=== PATIENT | female | born 1990 | race Caucasian/White ===

== ENCOUNTER 2022-04-15 10:44 | Outpatient (REF) | payer MEDICARE, MEDICAID, SELFPAY ==
[2022-04-15 13:15] LABS: MANUAL DIFF FLAG NO
[2022-04-15 13:21] LABS: Basophils Absolute Auto 0.1 X10*3/uL (0.0-0.2); Basophils Percent Auto 0.6 % (0-2); Eosinophils Percent Auto 0.2 % (0-4); Hematocrit 47.9 % (37.0-47.0); Hemoglobin 15.5 g/dl (12.0-16.0); Imm Gran Abs Auto 0.03 X10*3/uL (0.00-0.03); Imm Gran Pct Auto 0.2 % (0.0-0.4); Lymphocytes Absolute Auto 2.1 X10*3/uL (1.2-4.9); Lymphocytes Percent Auto 17.2 % (20-40); Mean Corpuscular HGB Conc 32.4 g/dl (31.0-35.0); Mean Corpuscular Hemoglobin 29.6 pg (27.0-33.0); Mean Corpuscular Volume 91.4 fL (80.0-98.0); Mean Platelet Volume 12.8 fL (9.4-12.3); Monocytes Absolute Auto 0.3 X10*3/uL (0.1-1.2); Monocytes Percent Auto 2.8 % (2-11); Neutrophils Absolute Auto 9.6 x10*3/uL (2.0-8.3); Platelet Count 318 X10*3/uL (160-400); Red Blood Count 5.24 X10*6/uL (4.20-5.50); Red Cell Distribution Width 14.9 % (11.0-16.0); White Blood Count 12.2 X10*3/uL (4.8-10.8)
[2022-04-15 13:40] LABS: Alanine Aminotransferase 16 U/L (0-31); Albumin Level 4.2 g/dL (3.5-5.0); Alkaline Phosphatase 77 U/L (39-117); Aspartate Amino Transferase 20 U/L (5-31); Bilirubin Direct 0.2 mg/dL (0.0-0.5); Bilirubin Total 0.4 mg/dL (0.0-1.0); Total Protein 7.8 g/dL (6.5-8.0)
[2022-04-15 14:25] LABS: Syphilis Screen Nonreactive (Nonreactive)
[2022-04-16 05:29] LABS: HBsAGNum1 0.32 S/CO (0.00-0.99); Hepatitis B Surface Antigen Negative (Negative)
== END 2022-04-15 10:45 | disposition home or self-care (01) ==
LOC: HO.WFDLDS 10:44
PROVIDERS: Visit Provider Family Medicine Adult Medicine
DX: F11.20 Opioid dependence, uncomplicated (principal)
CPT/HCPCS: 36415; 80076; 85025; 86780; 87340

== ENCOUNTER 2024-07-18 10:26 | Emergency (ER) | payer MEDICARE, MEDICAID, SELFPAY ==
--- NOTE | ~2024-07-18 | XR_ITS ---
EXAMINATION: XR LUMBOSACRAL SPINE CLINICAL INFORMATION: right lower back pain COMPARISON: None available. TECHNIQUE: Three views of the lumbosacral spine. FINDINGS: No acute cortical disruption or gross malalignment. 2 metallic screws through the left sacroiliac joint into the main sacrum. Status post IVC filter placement likely [place] overlapping the right side of L2-3. Vascular clips in the left upper quadrant abdomen. XR/XR lumbar spine 2-3V IMPRESSION: No acute fracture or listhesis. Electronically signed by: Subhash Hinton MD 07/18/2024 12:07 PM YASH OLIVEROS
[2024-07-18 10:58] VITALS: BP 107/65; PULSE 74; RESP 18; TEMP 36.6; O2SAT 98; BMI 29.0
--- NOTE | 2024-07-18 11:02 | ED_ITS ---
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 States she is having difficulty ambulating secondary to the pain. Denies known injury, trauma, fall, new numbness, fever. Denies current IVDA. Reports chronic incontinence, unchanged. Related Data Previous Rx's ?Medication ?Instructions ?Recorded acetaminophen 500 mg tablet 500 mg PO Q6H PRN fever or pain 07/18/24 (Tylenol Extra Strength) #14 tabs cyclobenzaprine 10 mg tablet 10 mg PO TID PRN muscle spasm #14 07/18/24 tabs lidocaine 5 % topical patch 1 patch topical DAILY PRN pain #30 07/18/24 (Lidoderm) ea naproxen 500 mg tablet 500 mg PO BID PRN pain 10 days #20 07/18/24 tabs oxycodone 5 mg capsule 5 mg PO BID PRN pain (scale score 07/18/24 7-10) 3 days #9 caps Allergies Allergy/AdvReac Type Severity Reaction Status Date / Time iodine Allergy Unknown Verified 07/18/24 11:04 Review of Systems Review of Systems: Yes all other systems are reviewed and are negative Constitutional: Constitutional: Reports as per HPI [facility] Past Medical History Attestation statement: The following information was validated with the patient. Source: old records reviewed Social History Social History Advance Directives: No Advance Directives Information Provided: Yes Do you have a plan to hurt others: No Plan Physical Exam Vital Signs: Vital Signs: Last Vital Signs Temp 98.3 F 07/18/24 17:34 Pulse 57 07/18/24 17:34 Resp 16 07/18/24 17:34 BP 117/59 L 07/18/24 17:34 Pulse Ox 99 07/18/24 17:34 O2 Del Method Room Air 07/18/24 17:34 BMI result Body Mass Index 29.0 Const: General: cooperative, healthy appearing and no acute distress Orientation/consciousness: patient oriented x3 Limitations: no limitations HEENT: Head: Yes normal to inspection and Yes atraumatic Ears: hearing grossly normal bilaterally General nose exam: Normal external nose present Face and sinus: Yes normal facial exam Eyes: General: appearance normal, both eyes and all related structures EOM: EOMs intact bilaterally Neck: Neck: Yes normal visual inspection and Yes no meningeal signs Resp: Effort & Inspection: normal respiratory effort and no respiratory distress Auscultation: clear to auscultation bilaterally Cardio: Rate: regular rate Heart sounds: S1 normal heart sound present and S2 normal heart sound present GI: Inspection: Yes normal to inspection Palpation (GI): Soft to palpation, nontender, no guarding and not rigid : General: Yes no CVA tenderness Back/Spine/Pelvis: Other: No midline cervical/thoracic/lumbar spinous tenderness/step-off or deformity. + left-sided paraspinal/MSK reproducible lumbar tenderness to palpation. Palpable muscle spasming. Back: no CVA tenderness Skin: Rashes: no rashes Wounds: no wounds Neuro: Other: Strength intact throughout, at patient's baseline. No saddle anesthesia. Sensation intact to light touch. Neurovascular intact distally General: patient oriented x3, tone normal, moves all extremities and no meningeal signs Cranial nerves: Yes CN's II-XII intact bilaterally Motor exam (neuro): 5/5 motor strength present throughout Extrem: General: Yes normal to inspection Course Course Course Narrative: This is a Rapid Medical Examination (RME) performed by Dee Jones PA-C in triage. Full HPI, ROS, assessment and treatment plan per primary provider in the Main ED. 34 yo female with history of opioid use disoder on methadone 170 mg per day, history of CVA due to drugs, history of SI attempt jumping off of a bridge in 2013 which left her in a wheelchair but is now ambulatory who presents to the ER for evaluation of nontraumatic right lower back pain that radiates down her leg for the last 3 days. Now unable to ambulate. Plan: XR lumbar spine, treat and reassess XR lumbar spine 2-3V IMPRESSION: No acute fracture or listhesis. UA not infected -after multiple pain medications in the ED including cyclobenzaprine, Toradol, Lidoderm patch, oxycodone and prednisone patient reports mild symptomatic improvement > ambulatory in the ED Discussed discharged with PCP/spine follow-up vs admission for pain control, however with shared decision-making would like to be discharged. > Results discussed with patient including worrisome signs and symptoms and strict return precautions, and when to return to the emergency department. They verbalized understanding and feel safe for discharge at this time. Medications Administered Discontinued Medications Generic Name Dose Route Start Last Admin Trade Name Freq PRN Reason Stop Dose Admin Cyclobenzaprine HCl 10 mg 07/18/24 13:10 07/18/24 13:27 Cyclobenzaprine Hcl 10 Mg Tablet PO 07/18/24 13:11 10 mg ONCE ONE Administration Ketorolac Tromethamine 30 mg 07/18/24 14:17 07/18/24 15:07 Ketorolac Tromethamine 30 Mg/Ml Vial IM 07/18/24 14:18 30 mg ONCE ONE Administration Lidocaine 1 patch 07/18/24 13:10 07/18/24 13:28 Lidocaine 4 % Patch Adh..Patch TRANSDERMA 07/18/24 13:11 1 patch ONCE ONE Administration Protocol Oxycodone HCl 5 mg 07/18/24 14:17 07/18/24 15:06 Oxycodone Hcl Immed Release 5 Mg Tablet PO 07/18/24 14:18 5 mg ONCE ONE Administration Prednisone 40 mg 07/18/24 15:35 07/18/24 16:46 Prednisone 20 Mg Tablet PO 07/18/24 15:36 40 mg ONCE ONE Administration Medical Decision Making Medical Decision Making MDM Narrative: 34-year-old female with a past medical history of opiate use disorder currently on methadone, 170 mg daily, 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 On exam vital signs stable, NAD, nontoxic appearing, physical exam as noted above. No midline spinous tenderness throughout or red flag symptoms. Patient was chronic incontinence. Concern for MSK pain/strain vs sciatica vs herniated disc. Low suspicion for acute epidural abscess, cauda equina or cord compression. Unlikely renal stones/pyelo or UTI Plan: X-ray ordered in triage, UA, pain control, re-evaluate/ambulation trial Please refer to course for remaining clinical decision making, interpretation of labs/imaging results, and discussions with consultants and/or family members. Differential Diagnosis Differential Diagnoses: The differential diagnosis associated with the presentation includes As above Admission/Observation Consideration of admission/observation: Escalation of care including admission/observation considered Lab Data MDM Lab Attestation statement: I reviewed the patient's lab results. Labs: Lab Results 07/18/24 Range/Units 17:39 Urine Color Yellow Urine Appearance Clear Urine pH 6.0 (5.0-9.0) Ur Specific [place] 1.015 (1.005-1.025) Urine Protein Negative (Neg-Trace) mg/dL Urine Glucose (UA) Negative (Negative) mg/dL Urine Ketones Negative (Negative) mg/dL Urine Blood Negative (Negative) Urine Nitrite Negative (Negative) Ur Leukocyte Esterase Small (1+) H (Negative) Urine RBC 0-2 (0-2) /HPF Urine WBC 0-5 (0-5) /HPF Ur Squamous Epith Cells 6-10 (0-2) /HPF Urine Bacteria Trace (None Seen) Hyaline Casts 0-2 (0-2) /LPF Independent Interpretation I performed an independent interpretation of an: Plain X-Ray Radiology Impression Discussion of test interpretation with radiology: I have reviewed the radiologist's reading. Independent Historian Clinical information obtained from an independent historian. History obtained from or confirmed by: Other ([employer]) External Record Review External record reviewed: Inpatient record, Office record, Outpatient record, Prior outpatient labs, Prior outpatient radiology, Primary care record and Outside ED record Tests considered The following testing was considered but not selected: As above Prescription Management I considered prescription management with: Pain Medication Chronic Conditions Patient?s care impacted by: Other Social Determinants Patient?s care significantly limited by Social Determinants of Health including: Inadequate housing, Low income, Alcoholism and drug addiction in family, Problems related to primary support group, Unemployment, Problems related to employment and Other Social Determinant of Health Discharge Plan Discharge Clinical Impression: Spasm of muscle of lower back, Lumbar radiculopathy Patient Disposition: Home, Self-Care Instructions: Lumbar Radiculopathy (ED), Muscle Spasm (ED) Additional Instructions: Your x-rays are reassuring Flexeril is a muscle relaxer, take at night as it makes you drowsy, do not drive, drink alcohol, or operate machinery while taking it Naproxen as an anti-inflammatory / pain medication, take with food Lidoderm patches are numbing patches, apply to painful area Oxycodone as an opiate pain medication, take only when pain is severe for the next 3 days Please apply heat Do gentle stretches, keep moving Follow-up with our curriculum specialist In addition take Tylenol at home If symptoms persist or worsen, pain becomes unbearable, you developed urinary retention or incontinence, or weakness return to the ED Prescriptions: New cyclobenzaprine 10 mg tablet 10 mg PO TID PRN (Reason: muscle spasm) Qty: 14 0RF lidocaine [Lidoderm] 5 % adhesive patch,medicated 1 patch topical DAILY MDD remove after 12 hours PRN (Reason: pain) Qty: 30 0RF Rx Instructions: leave on most painful area for up to 12 hrs acetaminophen [Tylenol Extra Strength] 500 mg tablet 500 mg PO Q6H PRN (Reason: fever or pain) Qty: 14 0RF naproxen 500 mg tablet 500 mg PO BID PRN (Reason: pain) 10 Days Qty: 20 0RF oxycodone 5 mg capsule 5 mg PO BID PRN (Reason: pain (scale score 7-10)) 3 Days Qty: 9 0RF Rx Instructions: Partial Fill upon patient request. Referrals: [facility] [Provider Group] Domenica Bean MD [Primary Care Provider] - 5 days Print Language: French
[2024-07-18 12:00] VITALS: BP 115/57; PULSE 52; RESP 16; TEMP 36.7; O2SAT 98
[2024-07-18] MEDS: Cyclobenzaprine HCl 10 MG TABLET PO (13:27)
[2024-07-18] MEDS: Lidocaine 4 % Patch ADH..PATCH 1 PATCH TRANSDERMA (13:28)
[2024-07-18] MEDS: oxyCODONE HCl Immed Release 5 MG TABLET PO (15:06)
[2024-07-18] MEDS: Ketorolac Tromethamine 30 MG/ML VIAL IM (15:07)
[2024-07-18] MEDS: predniSONE 20 MG TABLET 40 MG PO (16:46)
[2024-07-18 17:34] VITALS: BP 117/59; PULSE 57; RESP 16; TEMP 36.8; O2SAT 99
[2024-07-18 17:46] LABS: Appearance Urine Clear; Color Urine Yellow; Glucose Urine UA Negative (Negative); Leukocyte Esterase Urine Small (1+) (Negative); Nitrite Urine Negative (Negative); Specific Gravity - Urine 1.015 (1.005-1.025); UMIC TRIGGER UACC YES; Urine Blood Negative (Negative); Urine Ketones Negative (Negative); Urine Protein Negative (Neg-Trace)
[2024-07-18 17:55] LABS: Bacteria Urine Trace (None Seen); Hyaline Casts Urine 0-2 /LPF (0-2); RBC Urine 0-2 /HPF (0-2); UACC Culture Trigger YES; WBC Urine 0-5 /HPF (0-5)
[2024-07-18 18:13] VITALS: BP 117/59; PULSE 57; RESP 16; TEMP 36.8; O2SAT 99
== END 2024-07-18 18:17 | disposition home or self-care (01) ==
PROVIDERS: Physician Assistant; Emergency Provider Emergency Medicine Emergency Medical Services; PCP Internal Medicine
DX: M62.830 Muscle spasm of back (principal); M54.16 Radiculopathy, lumbar region; R32 Unspecified urinary incontinence
CPT/HCPCS: 72100; 81001; 87086; 96372; 99283; 99284; J1885

== ENCOUNTER → 2024-07-18 11:04 | Outpatient (BNV) | payer MEDICARE, MEDICAID, SELFPAY | PROVIDERS: Visit Provider Radiology Diagnostic Radiology | DX: M54.59 Other low back pain (principal); Z96.698 Presence of other orthopedic joint implants | CPT/HCPCS: 72100 ==